=== PATIENT | male | born 1960 | race Caucasian/White ===

== ENCOUNTER 2023-03-06 13:52 | Emergency (ER) | payer OTHER ==
[~2023-03-06] VITALS: Ht 175.3 cm; Wt 90.7 kg
[~2023-03-06 13:52] MED LIST: COREG CR20 MG; DIGOXIN0.125 MG/2; POTASSIUM 25 M25 ME1; SYNTHROID200 MCG
[2023-03-06 16:09] LABS: HEMATOCRIT 43.1 % (39.0-48.0); MEAN CORPUSCULAR HEMOGLOBIN 34.1 pg (27.00-32.0); MEAN CORPUSCULAR HGB CONC 34.8 g/dl (32.0-36.0); PLATELET COUNT 187 K/uL (150-450)
[2023-03-06 16:21] LABS: RED CELL DISTRIBUTION WIDTH 16.3 % (11.5-14.5)
[2023-03-06 16:29] LABS: INR 1.17; PARTIAL THROMBOPLASTIN TIME 25.7 SECONDS (22.0-34.0); PROTHROMBIN TIME 12.1 SECONDS (9.0-11.5)
[2023-03-06 16:31] LABS: ALBUMIN 3.9 gm/dL (3.4-5.0); BILIRUBIN TOTAL 1.89 mg/dL (0.3-1.2); CALCIUM 8.8 mg/dL (8.5-10.1); CREATININE SERUM 1.33 mg/dL (0.70-1.30); GFR 54.85; GLOBULINA 3.7 G/DL (2.4-3.5); POTASSIUM 3.67 mEq/L (3.5-5.1); TOTAL PROTEIN 7.6 gm/dL (6.4-8.2)
[2023-03-06] MEDS ORDERED: VISTARIL25 MG PO (19:54)
== END 2023-03-06 20:11 | disposition home or self-care (01) ==
LOC: ER 13:52
PROVIDERS: Emergency Medicine
DX: R07.89 Other chest pain (principal); I10 Essential (primary) hypertension; Z88.8 Allergy status to other drugs, medicaments and biological substances; Z20.822 Contact with and (suspected) exposure to COVID-19